=== PATIENT | female | born 1990 | race Hispanic/Latino ===

== ENCOUNTER 2018-06-22 03:32 | Inpatient (IN) | payer OTHER ==
[2018-06-22] MEDS ORDERED: STADOL IV PRN (05:37)
--- NOTE | 2018-06-22 05:40 | Ultrasound Report ---
PROCEDURE: US OB BPP WO NON-STRESS TECHNIQUE: A limited OB sonogram was obtained for evaluation of the biophysical profile. HISTORY: POST DATE COMPARISONS: None FINDINGS: For breathing movements, a score of 2 out of 2 was obtained. For movements, a score of 2 out of 2 was obtained. For posture and tone, a score of 2 out of 2 was obtained. For qualitative amniotic fluid volume, a score of 0 out of 2 was obtained. The biophysical profile score is 6 out of 8. The heart rate is 144 BPM. IMPRESSION: Biophysical profile score is 6 out of 8.. This document is electronically signed by Fredy Singh MD., June 22 2018 05:37:51 AM ET
--- NOTE | 2018-06-22 05:48 | Ultrasound Report ---
PROCEDURE: US OB FOLLOW UP TECHNIQUE: A transabdominal OB sonogram was obtained for evaluation of the estimate weight and TANVI. HISTORY: TANVI, POST DATE COMPARISONS: None FINDINGS: There is a single viable intrauterine in cephalic presentation with an estimated gestationa l age of 38 weeks 5 days. The heart rate is 144 BPM. The placenta is anterior in position and i s grade 2. The TANVI is diminished at 5.2 cm. A complete survey of organs was not obtained. The e stimated weight is 3485 g. IMPRESSION: Oligohydramnios.. The TANVI is 5.2 cm. The estimated weight is 3485 g. This document is electronically signed by Fredy Singh MD., June 22 2018 05:46:06 AM ET
[2018-06-22] MEDS: LACTATED RINGERS 1,000 ML IV SCH ×2 (06:30→07:00)
[2018-06-22] MEDS ORDERED: PITOCin/NS 20 UNIT/1000ML DRIP 20,000 MILLIUNITS/1,000 ML BAG IV ONE (06:45)
[2018-06-22 06:50] LABS: Hematocrit 34.7 % (30.3-42.9); Hemoglobin 11.7 gm/dl (10.1-14.3); Mean Corpuscular HGB Conc 34 % (30-34); Mean Corpuscular Volume 83 fl (79-97); Platelet Count 264 K/mm3 (140-440); Red Cell Distribution Width 12.9 % (13.2-15.2)
[2018-06-22] MEDS ORDERED: PITOCin/NS 30 UNIT/500ML 30 UNITS/500 ML BAG IV SCH (07:00)
--- NOTE | 2018-06-22 07:37 | History and Physical Report ---
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 yes EDC Calculations LMP: 06/16/2018 EDC Confirmation: 06/16/2018 Gestational Age: 21 3/7 weeks Past History : 4 Term Births: 2 Premature Births: 0 Living Children: 2 Para: 2 Mult. Births: 0 Prev : 0 Aborta: 1 Spont. 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 of genital herpes: no Partner hx. of genital herpes: no Rash, Viral, or Febrile illness since last LMP? no Varicella/Chicken Pox Status: Previous Disease Genetic History Congenital Heart Defect: Mom: no Dad: no Kathryn Disease: Mom: no Dad: no Thalassemia Mom: no Dad: no Neural Tube Defect Mom: no Dad: no Down's Syndrome Mom: no Dad: no Doroteo-Sachs Mom: no Dad: no Sickle Cell Disease/Trait Mom: no Dad: no Hemophilia Mom: no Dad: no Muscular Dystrophy Mom: no Dad: no Cystic Fibrosis Mom: no Dad: no Lavon Chorea Mom: no Dad: no Mental Retardation Mom: no Dad: no Fragile X Mom: no Dad: no Other Genetic/Chromosomal Disorder Mom: no Dad: no Child w/other defect Mom: no Dad: no Enviromental Exposures Enviromental Exposures Reviewed Xray Exposure: no Medication, drug, or alcohol use since LMP: no Chemical/Other Exposure: no Exposure to Cat Liter: no Hx of Parvovirus (Fifth Disease): no Occupational Exposure to Children: none Active Medications (reviewed today): None Current Allergies (reviewed today): No known allergies Past History Past Medical History: other (see hpi) Past Surgical History: other (see hpi) 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 (see hpi) Family/Genetic History: other (see hpi) Social history: other (see hpi) - Obstetrical History : 4 Medications and Allergies Allergies Allergy/AdvReac Type Severity Reaction Status Date / Time No Known Allergies Allergy Verified 06/22/18 05:47 Home Medications Medication Instructions Recorded Confirmed Last Taken Type Ibuprofen [Motrin 800 MG tab] 800 mg PO TID PRN #30 tablet 06/23/18 Unknown Rx Lidocain2.5%/Prilocai2.5% [Emla] 5 gm TP PRN #1 tube 06/23/18 Unknown Rx Active Meds: Active Medications Butorphanol Tartrate (Stadol) 2 mg IV Q2H PRN PRN Reason: Labor Pain Lactated Ringer's (Lactated Ringers) 1,000 mls @ 125 mls/hr IV DIRECT TRISHA Last Admin: 06/22/18 07:00 Dose: 125 mls/hr Documented by: Oxytocin/Sodium Chloride (Pitocin/Ns 30 Unit/500ml) 30 units in 500 mls @ 2 mls/hr IV TITR TRISHA; Protocol Review of Systems All systems: negative (strong painful contractions, LOF, clear since 0530 am, denies vaginal bleeding. +FM) - Vital Signs Vital signs: Vital Signs Pulse BP 64 124/86 06/22/18 03:48 06/22/18 03:48 Temp Pulse Resp BP Pulse Ox 98.2 F 82 18 144/89 06/22/18 06:02 06/22/18 05:58 06/22/18 06:02 06/22/18 05:58 - Physical Exam Breasts: Positive: normal Cardiovascular: Regular rate, Normal S1, Normal S2 Lungs: Positive: Clear to auscultation Abdomen: Positive: normal appearance, soft, normal bowel sounds. Negative: distention, tenderness Genitourinary (Female): Positive: normal external genitalia, normal perenium Vulva: both: normal Vagina: Positive: normal moisture. Negative: discharge Cervix: Negative: lesion, discharge Uterus: Positive: normal size, normal contour Adnexa: both: normal Anus/Rectum: Positive: normal perianal skin, heme negative. Negative: rectal mass, hemorrhoids Extremities: Deep Tendon Reflex Grade: Normal +2 - Obstetrical FHR: auscultation normal, category 1 Uterine Contraction Monitor Mode: External Cervical Dilatation: 4 Cervical Effacement Percentage: 100 station: 0 Uterine Contraction Pattern: Regular Uterine Tone Measurement Phase: Contraction Uterine Contraction Intensity: Moderate Results Result Diagrams: 06/22/18 23:59 Abnormal lab results 06/22/18 Range/Units 06:15 WBC 13.7 H (4.5-11.0) K/mm3 RDW 12.9 L (13.2-15.2) % All other labs normal. Assessment and Plan 27 y.o. IUP 40w6d presents for c/o contractions.US in triage shows TANVI 5 cm, BPP -2 for fluids. Admitted for labor/augmentation. Routine admission orders placed. Patient desires epidural for pain management. GBS negative. Anticipate vaginal delivery.
[2018-06-22] MEDS ORDERED: MINERAL OIL PO PRN (07:38)
[2018-06-22] MEDS ORDERED: XYLOCAINE 2% INFILTRATI ONE (07:38)
[2018-06-22] MEDS ORDERED: BRETHINE IVP PRN (07:38)
[2018-06-22] MEDS ORDERED: ZOFRAN IV PRN ×2 (07:38→13:01)
[2018-06-22] MEDS ORDERED: BRETHINE SUB-Q PRN (07:38)
[2018-06-22] MEDS ORDERED: NARCAN 2 MG/2 ML IV PRN (07:39)
[2018-06-22] MEDS ORDERED: MARCAINE 0.25% INFILTRATI ONE (07:41)
[2018-06-22] MEDS ORDERED: ZOFRAN ONE (07:41)
--- NOTE | 2018-06-22 07:41 | Anesthesia Consultation ---
Anesthesia Consult and Med Hx - Airway Anesthetic Teeth Evaluation: Good ROM Head & Neck: Adequate Mental/Hyoid Distance: Adequate Mallampati Class: Class I Intubation Access Assessment: Good - Pulmonary Exam CTA: Yes - Cardiac Exam Cardiac Exam: RRR - Pre-Operative Health Status ASA Pre-Surgery Classification: ASA2 Proposed Anesthetic Plan: Epidural - Pulmonary Hx Smoking: No Hx Asthma: No Hx Respiratory Symptoms: No SOB: No COPD: No Home Oxygen Therapy: No Hx Pneumonia: No - Cardiovascular System Hx Hypertension: No - Central Nervous System Hx Seizures: No Hx Psychiatric Problems: No - Endocrine Hx Renal Disease: No Hx Hypothyroidism: No Hx Hyperthyroidism: No - Hematic Hx Anemia: No Hx Sickle Cell Disease: No - Other Systems Hx Alcohol Use: No
--- NOTE | 2018-06-22 07:41 | Anesthesia Day of Surgery ---
Anesthesia Day of Surgery - Day of Surgery Patient Examined: Yes Patient H&P Reviewed: Yes Patient is NPO: Yes Beta Blockers: No Cardiac Clearance: No Pulmonary Clearance: No Wm's Test: N/A
[2018-06-22] MEDS ORDERED: LACTATED RINGERS 1,000 ML IV SCH (08:00)
[2018-06-22] MEDS ORDERED: fentaNYL-BUPIV 2 MCG/ML-0.125% 200 MCG/100 ML BAG EPIDURAL SCH (08:00)
[2018-06-22] MEDS ORDERED: PITOCin/NS 20 UNIT/1000ML DRIP 20 UNITS/1,000 ML BAG IV SCH ×2 (08:00→13:01)
--- NOTE | 2018-06-22 10:27 | Procedure Note ---
OB Delivery Note - Delivery Date of Delivery: 06/22/18 Production Painter: JEFFREY LAKE Estimated blood loss: 200cc - Vaginal Delivery presentation: vertex Delivery position: OA Intrapartum events: meconium Delivery induction: none Delivery augmentation: pitocin Delivery monitor: external FHT, external uterine Route of delivery: Delivery placenta: spontaneous Delivery cord: nuchal cord (x1, reduced withough difficulty), 3 umbilical vessels Episiotomy: none Delivery laceration: 1st degree Delivery repair: vicryl Anesthesia: epidural Delivery comments: of viable male infant in OA position with compound hand presentation near face, Nuchal cord x1 reduced without complication. placed direct skin to skin on mother's abdomen. Cord clamped x2 upon cessation of pulsation and cut by FOC. Placenta delivered complete and intact, 3vc. Pitocin open to IV. 1st degree laceration, repaired in the normal fashion. Hemostasis acheived. Fundus firm. VSSAF. apgars 8/9, weight 8#12. and mother in LDR stable condition. - Infant A at 1 minute: 8 (8#12) at 5 minutes: 9 Infant Gender: Male (8#2)
[2018-06-22] MEDS ORDERED: SODIUM CHLORIDE FLUSH SYRINGE 10 ML IV NR (13:01)
[2018-06-22] MEDS ORDERED: PHENERGAN PO PRN (13:01)
[2018-06-22] MEDS ORDERED: BENADRYL PO PRN (13:01)
[2018-06-22] MEDS ORDERED: TYLENOL PO PRN (13:01)
[2018-06-22] MEDS ORDERED: DULCOLAX PR PRN (13:01)
[2018-06-22] MEDS ORDERED: TUCKS PAD TP PRN (13:01)
[2018-06-22] MEDS ORDERED: LANSINOH TP PRN (13:01)
[2018-06-22] MEDS ORDERED: MILK OF MAGNESIA PO PRN (13:01)
--- NOTE | 2018-06-22 13:01 | Post Anesthesia Evaluation ---
- Post Anesthesia Evaluation Patient Participated: Yes Airway Patent: Yes Stable Respiratory Function: Yes Nausea/Vomiting: No Temp > 96.8F: Yes Pain Manageable: Yes Adequeate Hydration: Yes Anesthesia Complications: No Block Receding Appropriately: Yes Patient on Ventilator: No
[2018-06-22] MEDS: IBUPROFEN PO SCH ×2 (15:06→21:13)
[2018-06-22] MEDS ORDERED: COLACE PO SCH (22:00)
[2018-06-23 00:16] LABS: Hematocrit 27.6 % (30.3-42.9); Hemoglobin 9.5 gm/dl (10.1-14.3)
--- NOTE | 2018-06-23 07:51 | Discharge Summary ---
Providers - Providers Date of Admission: 06/22/18 05:36 Date of discharge: 06/23/18 (pt agrees with d/c) Attending physician: CHELSEA CHAUDHRY 06/22/18 13:01 Consult to Ssn/Ssbn Weapons Equipment Operator [CONS] Routine Reason For Exam: assistance with , SNS Primary care physician: CHELSEA CHAUDHRY Hospitalization Reason for admission: active labor Delivery: Episiotomy: none Laceration: none Incision: normal Other procedures: none complications: none Discharge diagnosis: IUP at term delivered baby: male Hospital course: uncomplicated vaginal delivery Pt w/o complaint VSS FF below umb Lochia moderate Perineum intact H&H 01/02 drop r/t blood loss from delivery Pt is asymptomatic Doing well s/p vag delivery P: d/c today with instructions RTO 4 weeks PP care Circ in 1 week Condition at discharge: Good Disposition: DC-01 TO HOME OR SELFCARE - Discharge Diagnoses (1) Normal spontaneous vaginal delivery Status: Acute Comment: RTO 4 weeks PP care Plan - Provider Discharge Summary Activity: routine, no sex for 6 weeks, no heavy lifting 4 weeks, no strenuous exercise Diet: routine Instructions: routine Additional instructions: [] Smoking cessation referral if applicable(refer to patient education folder for contact #) [] Refer to [facility] Book[facility] Call your doctor immediately for: * Fever > 100.5 * Heavy vaginal bleeding ( >1 pad per hour) * Severe persistent headache * Shortness of breath * Reddened, hot, painful area to leg or breast * Drainage or odor from incision. * Keep incision clean and dry at all times and follow doctor's instructions regarding bathing/showering - Follow up plan Follow up: CHELSEA CHAUDHRY MD [Primary Care Provider] - 7 Days (Congratulations! Please call [phone] to schedule your visit in 4 weeks. Call for your son's circumcision in 1 week. Bring the EMLA cream with you to his visit. Do NOT use at home. Call with headache, not relieved with Tylenol, blurred vision, chest pain. Motrin/ibuprofen for cramping/pain. Call with concerns.)
[2018-06-23] MEDS ORDERED: PRENATAL VITAMIN PO SCH (10:00)
[2018-06-23] MEDS: IBUPROFEN PO SCH (14:15)
[2018-06-23 18:00] VITALS: BP 124/82
== END 2018-06-23 16:40 | disposition home or self-care (01) | DRG 806 ==
LOC: TRG 03:32 → LD 05:36 → TRG 05:36 → OB 11:57
PROVIDERS: ADMIT Obstetrics & Gynecology; ATTEND Obstetrics & Gynecology
PROC: 10E0XZZ Delivery of Products of Conception, External Approach (ICD-10-PCS; principal; 2018-06-22)
PROC: 0HQ9XZZ Repair Perineum Skin, External Approach (ICD-10-PCS; 2018-06-22)
PROC: 3E0R3BZ Introduction of Anesthetic Agent into Spinal Canal, Percutaneous Approach (ICD-10-PCS; 2018-06-22)
PROC: 00HU33Z Insertion of Infusion Device into Spinal Canal, Percutaneous Approach (ICD-10-PCS; 2018-06-22)
DX: O77.0 Labor and delivery complicated by meconium in amniotic fluid (principal); D62 Acute posthemorrhagic anemia; Z37.0 Single live birth; O69.81X0 Labor and delivery complicated by cord around neck, without compression, not applicable or unspecified; Z3A.40 40 weeks gestation of pregnancy; O70.0 First degree perineal laceration during delivery
CPT/HCPCS: 36415; 76816; 76819; 85014; 85018; 85027; 86592; 86850; 86870; 86900; 86901; 88307; G0378; A6250; J2405; J2590; J7120